=== PATIENT | female | born 1985 | race African-American/Black ===

== ENCOUNTER 2022-01-19 09:25 | Emergency (ER) | payer OTHER ==
[2022-01-19 09:40] VITALS: BP 113/78; PULSE 113; TEMP 101.1; BMI 23.1
[2022-01-19] MEDS ORDERED: IBUPROFEN 400 MG TABLET (FP) PO ONE ×2 (09:41→09:45)
== END 2022-01-19 09:55 | disposition home or self-care (01) ==
LOC: FER 09:25
DX: R05.1 Acute cough (principal); R50.9 Fever, unspecified; R51.9 Headache, unspecified
CPT/HCPCS: 99283-25; C9803-CS; U0003; U0005

== ENCOUNTER 2022-01-29 22:02 | Emergency (ER) | payer OTHER ==
[2022-01-29 22:09] VITALS: BP 116/75; PULSE 110; TEMP 100.9; BMI 29.2
[2022-01-29] MEDS ORDERED: ACETAMINOPHEN 500 MG TABLET (FP) PO ONE (22:17)
[2022-01-29] MEDS ORDERED: ACETAMINOPHEN 500 MG TABLET (FP) ONE (22:20)
== END 2022-01-29 22:30 | disposition home or self-care (01) ==
LOC: FER 22:02
DX: B34.9 Viral infection, unspecified (principal)
CPT/HCPCS: 0241U-QW; 87651; 99283-25

== ENCOUNTER 2022-11-08 21:56 | Emergency (ER) | payer OTHER ==
[2022-11-08 22:02] VITALS: BP 115/74; PULSE 112; RESP 18; BMI 28.8
[2022-11-08] MEDS ORDERED: KETOROLAC TROMETHAMINE 30 MG/1 ML VIAL IVPUSH ONE (22:31)
[2022-11-08] MEDS ORDERED: SODIUM CHLORIDE 1,000 ML IV ONE (22:31)
[2022-11-08] MEDS ORDERED: METOCLOPRAMIDE HCL INJECTION 10 MG/2 ML VIAL IVPB ONE (22:32)
[2022-11-08] MEDS ORDERED: KETOROLAC TROMETHAMINE 30 MG/1 ML VIAL ONE (22:47)
[2022-11-08] MEDS ORDERED: METOCLOPRAMIDE HCL INJECTION 10 MG/2 ML VIAL ONE (22:47)
[2022-11-08 23:08] LABS: HEMATOCRIT 37.7 % (32.4-45.2); MCH 30.2 pg (25.7-33.7); MCHC 34.6 g/dl (32.0-36.0); MEAN CELL VOLUME 87.2 fl (80-96); MEAN PLT VOLUME 8.2 fl (7.5-11.1); PLATELET COUNT 279.5 10^3/uL (134-434); RBC 4.32 10^6/uL (3.60-5.2); RDW 14.2 % (11.6-15.6); WHITE BLOOD COUNT 19.3 10^3/uL (4.0-10.8)
[2022-11-08 23:21] LABS: ALBUMIN 3.9 g/dl (3.4-5.0); BILIRUBIN,TOTAL 0.7 mg/dl (0.2-1); CALCIUM 8.9 mg/dl (8.5-10); CREATININE 0.6 mg/dl (0.55-1.3); TOT PROT 7.5 g/dl (6.4-8.2)
[2022-11-08 23:33] LABS: PLATELET ESTIMATE ADEQUATE
[2022-11-08 23:49] VITALS: TEMP 98.6
[2022-11-09] MEDS ORDERED: AZITHROMYCIN 500 MG TABLET PO ONE (01:04)
[2022-11-09] MEDS ORDERED: AZITHROMYCIN 250 MG TABLET ONE (01:07)
== END 2022-11-09 01:11 | disposition home or self-care (01) ==
LOC: FER 21:56
PROC: 3E0333Z Introduction of Anti-inflammatory into Peripheral Vein, Percutaneous Approach (ICD-10-PCS; principal; 2022-11-08)
PROC: 3E033GC Introduction of Other Therapeutic Substance into Peripheral Vein, Percutaneous Approach (ICD-10-PCS; 2022-11-08)
PROC: 3E0337Z Introduction of Electrolytic and Water Balance Substance into Peripheral Vein, Percutaneous Approach (ICD-10-PCS; 2022-11-08)
DX: R51.9 Headache, unspecified (principal); R50.9 Fever, unspecified; J01.90 Acute sinusitis, unspecified; Z20.822 Contact with and (suspected) exposure to COVID-19
CPT/HCPCS: 36415; 70450-TC; 70486-TC; 80053; 81025; 85027; 96361; 96374; 96375; 99284-25; C9803-CS; U0003; U0005

== ENCOUNTER 2024-08-31 12:08 | Emergency (ER) | payer OTHER ==
[2024-08-31 12:25] VITALS: BP 110/76; PULSE 83; RESP 20; TEMP 98.6; BMI 29.6
[2024-08-31] MEDS ORDERED: ACETAMINOPHEN INJECTION 100 ML ONE (12:53)
[2024-08-31] MEDS ORDERED: KETOROLAC TROMETHAMINE 30 MG/1 ML VIAL ONE (12:53)
[2024-08-31] MEDS ORDERED: METOCLOPRAMIDE HCL INJECTION 10 MG/2 ML VIAL ONE (12:53)
[2024-08-31] MEDS: KETOROLAC TROMETHAMINE 30 MG/1 ML VIAL IVPUSH ONE (13:04)
[2024-08-31] MEDS: METOCLOPRAMIDE HCL INJECTION 10 MG/2 ML VIAL IVPB ONE (13:04)
[2024-08-31] MEDS: SODIUM CHLORIDE 0.9% 500 ML INFUS.BAG IV ONE (13:04)
[2024-08-31] MEDS: ACETAMINOPHEN 1000 MG/100 ML BAG IVPB ONE (13:05)
[2024-08-31 16:43] LABS: HIV INTERPRETATION NEGATIVE (NEGATIVE)
== END 2024-08-31 14:54 | disposition home or self-care (01) ==
LOC: FER 12:08
PROC: 3E033NZ Introduction of Analgesics, Hypnotics, Sedatives into Peripheral Vein, Percutaneous Approach (ICD-10-PCS; principal; 2024-08-31)
PROC: 3E0333Z Introduction of Anti-inflammatory into Peripheral Vein, Percutaneous Approach (ICD-10-PCS; 2024-08-31)
PROC: 3E033GC Introduction of Other Therapeutic Substance into Peripheral Vein, Percutaneous Approach (ICD-10-PCS; 2024-08-31)
DX: J10.1 Influenza due to other identified influenza virus with other respiratory manifestations (principal); R51.9 Headache, unspecified
CPT/HCPCS: 36415; 86803; 87389; 99284-25; J0131